=== PATIENT | male | born 1980 | race African-American/Black ===

== ENCOUNTER 2017-09-20 00:29 | Emergency (ER) | payer MEDICAID, OTHER ==
[~2017-09-20] VITALS: Ht 175.3 cm; Wt 83.9 kg
[~2017-09-20 00:29] MED LIST: ARIP5TAB10; CITA10TA17
--- NOTE | 2017-09-20 00:29 | NUR ---
"SENT [facility]; AM SUICIDAL" NO SOB OR PAIN.A/OX4 VSS NAD. WILL CONTINUE TO MONITOR FOR ANY CHANGES DURING THE SHIFT.
[2017-09-20 01:22] LABS: BASOPHILS % (AUTO) 0.4 % (0.0-2.0); EOSINOPHILS % (AUTO) 3.2 % (0.0-6.0); HEMATOCRIT 33 % (39-51); LYMPHOCYTES # (AUTO) 2.6 /CMM (0.8-4.8); LYMPHOCYTES % (AUTO) 35.2 % (20.0-44.0); MEAN CORPUSCULAR HGB CONC 34 g/dl (31.0-36.0); MEAN CORPUSCULAR VOLUME 98 fL (80-96); MONOCYTES # (AUTO) 0.7 /CMM (0.1-1.30); MONOCYTES % (AUTO) 10.3 % (2.0-12.0); NEUTROPHILS # (AUTO) 3.7 /CMM (1.8-8.9); NEUTROPHILS % (AUTO) 50.9 % (43.0-81.0); PLATELET COUNT (AUTO) 212 /CMM (150-450); RDW COEFFICIENT OF VARIATION 13.4 (11.5-15.0); RED BLOOD CELL COUNT(AUTO) 3.33 MIL/uL (4.5-6.0); WHITE BLOOD COUNT (AUTO) 7.3 K/uL (4.3-11.0)
[2017-09-20 01:43] LABS: CALCIUM, SERUM 8.9 mg/dL (8.5-10.1); CARBON DIOXIDE 29 mmol/L (21-32); CHLORIDE 105 mmol/L (98-107); CREATININE 0.9 mg/dL (0.6-1.3); GLUCOSE 104 mg/dL (74-106); POTASSIUM 3.9 mmol/L (3.5-5.1); SODIUM SERUM 141 mmol/L (136-145); UREA NITROGEN, BLOOD 21 mg/dL (7-18)
[2017-09-20 01:48] LABS: ALANINE AMINOTRANSFERASE 62 U/L (12-78); ALBUMIN 3.3 g/dL (3.4-5.0); ALCOHOL, BLOOD < 3 mg/dL (0-0); ALKALINE PHOSPHATASE 66 U/L (46-116); ASPARTATE AMINOTRANSFERASE 37 U/L (15-37); BILIRUBIN,DIRECT 0.1 mg/dL (0.0-0.2); BILIRUBIN,TOTAL 0.3 mg/dL (0.2-1.0); TOTAL PROTEIN, SERUM 6.7 g/dL (6.4-8.2)
[2017-09-20 02:00] LABS: SALICYLATE 1.3 mg/dL (2.8-20.0)
[2017-09-20 02:01] LABS: ACETAMINOPHEN 0 ug/ml (10-30)
--- NOTE | 2017-09-20 02:30 | NUR ---
ER AT BEDSIDE
--- NOTE | 2017-09-20 03:02 | NUR ---
[facility] # for report [phone]
--- NOTE | 2017-09-20 03:56 | NUR ---
REPORT GIVEN TO [facility]
[2017-09-20 04:01] VITALS: BP 134/74
== END 2017-09-20 04:02 ==
LOC: ER 00:31
DX: F32.9 Major depressive disorder, single episode, unspecified (principal); R45.851 Suicidal ideations; F41.9 Anxiety disorder, unspecified; I10 Essential (primary) hypertension; F20.9 Schizophrenia, unspecified; Z88.0 Allergy status to penicillin
CPT/HCPCS: 36415; 80048-TC; 80076-TC; 80305; 85025-TC; A4606; G0480; J7030; Z7610

== ENCOUNTER 2017-11-07 02:37 | Emergency (ER) | payer SELFPAY ==
--- NOTE | 2017-11-07 02:46 | NUR ---
PATIENT CALLED IN WAITING AREA, NO ANSWER.
--- NOTE | 2017-11-07 03:08 | NUR ---
PATIENT CALLED IN WAITING AREA, NO ANSWER.
== END 2017-11-07 03:58 | disposition left against medical advice (07) ==
LOC: ER 02:37
DX: Z53.21 Procedure and treatment not carried out due to patient leaving prior to being seen by health care provider (principal)